=== PATIENT | male | born 1950 | race Caucasian/White ===

== ENCOUNTER 2018-09-19 17:10 | Inpatient (IN) ==
[2018-09-19] MEDS ORDERED: LOPRESSOR IV ONE (17:21)
--- NOTE | 2018-09-19 17:34 | PROVIDER DOCUMENTATION ---
HPI-Cardiac General - General Chief Complaint: Palpitations Stated Complaint: SOB/HEART ISSUE Time Seen by Provider: 09/19/18 17:17 Source: patient, family Allergies/Adverse Reactions: Patient Allergies Allergy/AdvReac Type Severity Reaction Status Date / Time Iodinated Contrast- Oral and Allergy Unknown Verified 09/19/18 17:28 IV Dye ciprofloxacin [From Cipro] AdvReac Unknown Verified 09/19/18 17:28 Home Medications: Home Medication List Medication Instructions Recorded Confirmed Last Taken Type Labetalol HCl 300 mg PO BID 04/21/14 04/21/14 04/21/14 12:00 History Nifedipine [Nifedipine ER] 30 mg PO DAILY 04/21/14 04/21/14 04/21/14 12:00 Hi story Bimatoprost [Latisse] 0.01 drop BOTH EYES QHS 04/22/14 04/22/14 Unknown History - History of Present Illness-Cardiac Nature of Presenting Problem: reports has been on chemo with oxaliplatin and leucovorin 02/12, recently he has been coughing and sob. lower extremity edema , cxr and pro bnp obtained showing pulm edema with pleural effusion, which was given furosemide 20mg. pt was given the augmentin x7 days, which was told to be off medicine. sob with exertion for 7 days. no histoyr of Afib rvr, Review of Systems - Adult - REVIEW OF SYSTEMS - ADULT Constitutional: reports: no symptoms reported Eyes: reports: no symptoms reported Ears, Nose, Mouth & Throat: reports: no symptoms reported Cardiovascular: reports: no symptoms reported Respiratory: reports: no symptoms reported Gastrointestinal: reports: no symptoms reported Genitourinary: reports: no symptoms reported Musculoskeletal: reports: no symptoms reported Integumentary: reports: no symptoms reported Neurological: reports: no symptoms reported Psychiatric: reports: no symptoms reported Endocrine: reports: no symptoms reported Hematologic/Lymphatic: reports: no symptoms reported Allergic/Immunologic: reports: no symptoms reported All Other Systems: Reviewed and Negative Past History - Adult - PAST MEDICAL HISTORY-ADULT Review of Records: reports: Old Records Reviewed, Nursing Assessment Review, Medications Reviewed, Social history reviewed & non-contributory. Major Childhood Illnesses: reports: denies history Cardiovascular: reports: HTN Respiratory: reports: denies history Gastrointestinal: reports: denies history Obstetrical/Gynecological: reports: denies history Genitourinary: reports: denies history Musculoskeletal: reports: denies history Neurological: reports: denies history Endocrine/Immune: reports: denies history Other Conditions: reports: denies history - IMMUNIZATION STATUS Childhood Immunizations: See Nurse Assessment Flu Vaccine: See Nurse Assessment - FAMILY HISTORY Family History: reviewed, not pertinent - SOCIAL HISTORY Smoking: denies Substance Use: none/never Alcohol Use Frequency: never Living Situation: family Physical Exam-General - PHYSICAL EXAM-ADULT Initial Vital Signs Reviewed: Yes - CONSTITUTIONAL General Appearance: appears well, alert, no apparent distress - EYES Eyes: PERRL/EOMI, pink conjunctivae - HEAD, EARS, NOSE, MOUTH & THROAT HENMT: normocephalic/atraumatic, moist mucous membranes, normal ENT inspection - NECK Neck: non-tender, full range of motion, supple - RESPIRATORY Respiratory: chest non-tender, no respiratory distress - CARDIOVASCULAR Cardiovascular: normal peripheral pulses, tachycardia, irregularly irregular, other (pitting edema alexsandra right leg) - GASTROINTESTINAL (ABDOMEN) Abdominal Exam: normal bowel sounds, non tender, soft, other (midline scar) - MUSCULOSKELETAL Back Exam: normal inspection, no CVA tenderness, no vertebral tenderness Extremity: normal range of motion, non-tender Peripheral Pulses: radial (R): 2+, radial (L): 2+, dorsalis-pedis (R): 2+, dorsalis-pedis (L): 2+ - SKIN Integumentary: normal color, normal turgor, warm/dry - NEUROLOGIC Neurologic: grossly normal, no motor/sensory deficits - PSYCHIATRIC Psych/Mental Status: normal mood/affect, normal thought content, normal thought process, oriented x 3 Progress - PLAN OF CARE/RESULTS Progress/Plan/Lab Results: Vital Signs - 8 hr 09/19/18 17:17 09/19/18 17:30 09/19/18 18:00 Temperature 98.0 F Pulse Rate 127 H 118 H 116 H Respiratory Rate 20 22 Blood Pressure 124/93 118/87 O2 Sat by Pulse Oximetry 94 L 92 L 90 L 09/19/18 18:30 09/19/18 18:48 Temperature Pulse Rate 123 H 125 H Respiratory Rate 22 25 H Blood Pressure 127/99 118/81 O2 Sat by Pulse Oximetry 90 L 89 L Laboratory Results - last 24 hr 09/19/18 09/19/18 09/19/18 17:27 17:27 17:27 WBC 10.47 RBC 4.57 L Hgb 14.3 Hct 42.0 MCV 91.9 MCH 31.3 H MCHC 34.0 RDW Std Deviation 19.1 H Plt Count 133 MPV 11.8 H Immature Gran % (Auto) 0.3 Neut % (Auto) 67.8 Lymph % (Auto) 19.8 L Clinch % (Auto) 10.7 H Eos % (Auto) 0.7 Baso % (Auto) 0.7 Immature Gran # (Auto) 0.03 Neut # (Auto) 7.11 H Lymph # (Auto) 2.07 Clinch # (Auto) 1.12 H Eos # (Auto) 0.07 Baso # (Auto) 0.07 PT 15.8 INR 1.17 PTT (Actin FS) 25.3 Sodium 136 Potassium 3.4 L Chloride 101 Carbon Dioxide 25 Anion Gap 10 BUN 11 Creatinine 0.7 Estimated GFR/1.73 m2 > 60 BUN/Creatinine Ratio 16 Glucose 107 H Calculated Osmolality 272 Calcium 8.5 L Total Bilirubin 0.81 AST 35 H ALT 20 Alkaline Phosphatase 110 Total Protein 6.8 Albumin 3.8 Globulin 3.0 Albumin/Globulin Ratio 1.3 Orders Category Date Time Status CBC WITH ELECTRONIC DIFF [HEME] Stat Lab 09/19/18 17:27 Completed CMP [COMPREHENSIVE METABOLIC PANEL] [CHEM] Stat Lab 09/19/18 17:27 Completed PROTIME WITH INR [COAG] Stat Lab 09/19/18 17:27 Completed PTT [COAG] Stat Lab 09/19/18 17:27 Completed Metoprolol [Lopressor] Med 09/19/18 17:21 Discontinued 5 mg IV NOW ONE Result Diagrams: 09/19/18 17:27 09/19/18 17:27 - CONSULTS/PCP/HOSPITALIST Notification #1 *Consult/PCP/Hospitalist*: dr. Durbin Time Discussed: 19:21 (afib rvr, s/p lopressor improving, however still tachy afib rvr. ) Consult Disposition: Admit Departure - Departure Date of Disposition Decision: 09/19/18 Time of Disposition Decision: 19:22 DIAGNOSIS: New onset a-fib Disposition: ADMITTED INPATIENT 09 Certified Medical Emergency: Emergent Condition: Stable Referrals and Follow-Ups: Antolin Wynne MD [Primary Care Provider] - - Critical Care Note This patient required my direct & personal management of CC.: No Attestation - Physician/ RADU Attestation The physician spent face to face time with patient:: Yes Advanced Practice Provider documentation review:: Supervising physician onsite and consulted in the evaluation and care of this patient. The physician did have a face to face encounter with the patient.
[2018-09-19 18:06] LABS: BASO# 0.07 X1000 (0.0-0.2); BASO% 0.7 % (0.0-0.8); EOS# 0.07 X1000 (0.0-0.7); EOS% 0.7 % (0.0-10.0); HEMOGLOBIN 14.3 g/dL (14.0-18.0); IMM GRAN# 0.03 X1000 (0.0-0.04); IMM GRAN% 0.3 % (0.0-0.5); LYMPH# 2.07 X1000 (1.2-3.4); LYMPH% 19.8 % (20.5-51.1); MCH 31.3 PG (27-31); MCV 91.9 FL (81-99); MONO# 1.12 X1000 (0.11-0.59); MONO% 10.7 % (1.7-9.3); MPV 11.8 FL (7.4-10.4); NEUT# 7.11 X1000 (1.4-6.5); NEUT% 67.8 % (42.2-75.2); PLT 133 X1000 (130-400); RBC 4.57 XMIL (4.7-6.1); RDW 19.1 % (11.5-14.5); WBC 10.47 X1000 (4.8-10.8)
[2018-09-19 18:21] LABS: AGAP 10; ALB/GLOB RATIO 1.3; ALBUMIN 3.8 g/dL (3.5-5.0); ALKALINE PHOSPHATASE 110 U/L (32-122); BUN 11 mg/dL (8-22); CALCIUM 8.5 mg/dL (8.8-10.2); CHLORIDE 101 mmol/L (98-107); COSMO 272; CREATININE 0.7 mg/dL (0.7-1.2); ESTIMATED GFR > 60; GLUCOSE 107 mg/dL (70-104); GOT 35 U/L (10-34); GPT 20 U/L (10-44); POTASSIUM 3.4 mmol/L (3.5-5.1); SODIUM 136 mmol/L (136-145); TCO2 25 mmol/L (25-35); TOTAL BILIRUBIN 0.81 mg/dL (0.20-1.00); TOTAL PROTEIN 6.8 g/dL (6.3-8.3)
[2018-09-19 18:35] LABS: INR 1.17; PROTIME 15.8 Seconds (11.0-16.0)
[2018-09-19 18:36] LABS: PTT 25.3 Seconds (22.3-41.8)
[2018-09-19] MEDS ORDERED: SOLU-CORTEF IV ONE (21:29)
[2018-09-19] MEDS ORDERED: BENADRYL IV ONE (21:29)
[2018-09-19] MEDS ORDERED: TYLENOL PO PRN (23:41)
[2018-09-19] MEDS ORDERED: NORCO-7.5 PO PRN (23:41)
[2018-09-19] MEDS ORDERED: ZOFRAN IV PRN (23:41)
[2018-09-20] MEDS: MAXIPIME 1 GM in NS 50 ML IV SCH ×2 (01:12→11:21)
[2018-09-20] MEDS: LASIX IV SCH ×2 (01:12→11:21)
--- NOTE | 2018-09-20 03:05 | HISTORY AND PHYSICAL ---
PRIMARY CARE PHYSICIAN: Dr. Antolin Wynne. DATE AND TIME: 09/19/2018 at 2030. ONCOLOGIST: Dr. Mcrae. CHIEF COMPLAINT: Irregular heart rhythm. HISTORY OF PRESENT ILLNESS: Mr. Staley is a 68-year-old male who has a recent diagnosis of colon cancer in March 2018. He underwent a colon resection and has since been receiving chemotherapy followed by Dr. Mcrae. The patient reports that he has had chronic problems with bilateral lower extremity edema for quite some time, and this had been attributed to a side effect of 1 of his blood pressure medications, which is likely the nicardipine. The patient reports that over the past few weeks he has had worsening bilateral lower extremity edema. He reports this was 3+ pitting edema. He also reports that starting a few weeks ago, he was having occasional productive cough with white sputum. He was reporting shortness of breath with exertion and was having occasional what he described as pain in the base of his lung, his mid lower back. He did report the symptoms to Dr. Mcrae and Dr. Mcrae did increase his Lasix, which had been normally 20 mg daily to just recently over the past day or so to 80 mg daily. He also did give him a prescription for Augmentin, a 10-day supply, which the patient states that he took the last pill of today, on September 19. The patient denies any fever, body aches, or chills. Given his symptoms as well as worsening swelling and continued shortness of breath with exertion, Dr. Mcrae did have him present to the ER earlier today for a chest x-ray, which did show pulmonary edema with trace pleural effusions, dense left perihilar infiltrate that was indeterminate. Dr. Mcrae did have him come back to the hospital for an echocardiogram, and during his echocardiogram study, the signals collection technician did note that his heart rhythm was irregular. He did have elevated heart rate. He was brought to the ER for further evaluation. Initial vital signs upon presentation in the ER were temperature 98 degrees, heart rate 127, respirations 20, blood pressure 124/93 with oxygen saturation that was 94% on room air. EKG did confirm that the patient was in atrial fibrillation with RVR at a rate of 132. The patient was given a one-time dose of 5 mg of IV Lopressor and his heart rate did immediately improve and maintained a heart rate in the 80s, and on the time of my assessment had converted into a sinus rhythm. The patient during all this, denied any feeling of his heart racing, any palpitations, or any chest pain. Though he has been reporting shortness of breath with exertion, he did not report any worsening shortness of breath during this time. The patient states that since taking his extra Lasix dose, which totaled 80 mg earlier in the day, he has had increased urine output at home, and since arriving to the hospital has had a measured 1000 mL of urine output. He denies any headache, dizziness, chest pain, orthopnea, proximal nocturnal dyspnea, abdominal pain, nausea or vomiting. The patient does report that he has occasional diarrhea, though states this has been intermittently ongoing since he was diagnosed with colon cancer and has had his colon resection. He denies any hematochezia or melena. He denies any dysuria. Other than his swelling in his bilateral lower extremities, he denies any other pain, numbness, or tingling in extremities. Upon my assessment in the ER, the patient was sitting in the ER stretcher resting comfortably. He was not in any acute distress. The patient does not wear oxygen at home and has never required it in the past. He is a former smoker, though was maintaining oxygen saturations of 89% to 90% on room air. With nasal cannula of 2 L, he is maintaining oxygen saturations of 96%. He was in sinus rhythm on the monitor with a rate in the 80s. Blood pressure is within normal limits. The patient does have 3+ pitting edema noted in bilateral lower extremities from approximately just inferior to the knee down bilaterally. He does have some very slight JVD noted with hepatojugular reflex, and does have some fine crackles noted in bilateral bases. Given the patient's colon cancer history as well as bilateral lower extremity edema, symptoms of shortness of breath, and new onset atrial fibrillation, we did perform a CT angiogram pulmonary arteries to rule out possible pulmonary embolism. Though it was negative for acute pulmonary embolism, there was interval development of bilateral pneumonia and pleural effusions noted. The patient will be placed inpatient admission for further treatment and evaluation. REVIEW OF SYSTEMS: A 14-point review of systems was conducted with the patient and all were negative, except for pertinent positives mentioned in above HPI. PAST MEDICAL HISTORY: 1. Hypertension. 2. History of 1 seizure in June 1984 that occurred after a syncopal episode while he was having blood drawn. He has not had a reported seizure since. 3. Glaucoma. 4. Sleep apnea. 5. Colon cancer with reported lymph node involvement status post colon resection, currently receiving chemotherapy, followed by Dr. Mcrae. PAST SURGICAL HISTORY: 1. Appendectomy. 2. Hernia repair. 3. Colon resection in March 2018. SOCIAL HISTORY: The patient is a former smoker, he did quit smoking in 1980 and had smoked prior to this since age 15. He did smoke up to at the highest point 1 pack per day. There is no known alcohol or illicit drug use. 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 He is , his was present at bedside during my examination. FAMILY HISTORY: Positive for his mother passing away at a very young age of 24 secondary to a motor vehicle crash. His father did pass away secondary to lung cancer. He was a reported smoker. There is some family history of heart disease. ALLERGIES: Patient has allergies to ciprofloxacin and iodinated oral and IV contrast dye. HOME MEDICATIONS: 1. Lasix 20 mg p.o. daily. 2. Gabapentin 300 mg p.o. b.i.d. 3. Quimby 7.5 mg, 1 tablet p.o. q.6 hours as needed for pain. 4. Labetalol 3 mg p.o. b.i.d. 5. Nifedipine extended release 30 mg p.o. daily. Lumigan eye drops, the strength is unknown at this time, but the patient reports that he does 1 drop in both eyes twice daily. We are going to confirm the strength. Also, we are going to confirm the dose strength of his labetalol, there is 300 mg p.o. b.i.d. that has been reconciled in the patient's home medication list, though the patient did verbally tell me that he took 100 mg p.o. twice daily. We will confirm this and make corrections if needed. DIAGNOSTIC DATA/LABORATORY RESULTS: White blood cell count is 10,470, hemoglobin 14.3, hematocrit 42, platelet count is 133,000. PT 15.8, INR 1.17, PTT is 25.3. Sodium 136, potassium 3.4, chloride 101, serum bicarb is 25, BUN 11, creatinine 0.7. Glucose 107, calcium 8.5. Liver function tests within normal limits, except for AST is slightly elevated at 35, CK 81, troponin less than 0.01. ProBNP is 904. TSH is 1.81. EKG showed atrial fibrillation with rapid ventricular response at a rate of 132, with a QTc of 548. Repeat EKG since that time did show a sinus rhythm with premature atrial complexes at a rate of 82, with a QTc of 474. Chest x-ray performed earlier in the day was a 2 view which showed pulmonary edema with trace pleural effusions. There was a dense left perihilar infiltrate that was indeterminate. CT angiogram pulmonary artery showed no acute PE or aortic dissection, though there was interval development of bilateral pneumonia and pleural effusions. There were stable right middle lobe nodule. Please see full CT report for detailed findings. PHYSICAL EXAMINATION: VITAL SIGNS: Temperature 98 degrees, heart rate 81, respirations 20, blood pressure 129/78 with a MAP of 88, oxygen saturation was 94% to 96% nasal cannula 2 L. GENERAL: Mr. Staley is a very pleasant, 68-year-old male who is resting in the ER stretcher. He was in no acute distress. He was awake, alert, and able to answer questions appropriately. HEENT: Head is atraumatic, normocephalic. Pupils are equal, round, reactive to light, were 3 mm bilaterally and brisk. Oral mucosa is moist. Oropharynx clear. NECK: Supple. Trachea midline. The patient did have some slight JVD noted with hepatojugular reflex. CARDIOVASCULAR: Patient has S1, S2 present. No murmurs, gallops, rubs appreciated. A regular rate and rhythm. PULMONARY: Patient has symmetrical chest expansion bilaterally. Lung sounds are clear to auscultation in bilateral upper pollock, though in bilateral lower pollock he did have fine crackles noted. ABDOMEN: Soft. Does appear to be somewhat slightly distended, but the patient does have a protuberant abdomen noted and he denies any increased abdominal swelling. He was nontender upon palpation. Bowel sounds are present in all 4 quadrants, were normoactive. EXTREMITIES: No cyanosis noted. The patient does have 3+ pitting edema noted in bilateral lower extremities from approximately the knees down, though pulse motor and sensory is intact in all extremities. Radial pulses and pedal pulses are 2+ bilaterally. INTEGUMENTARY: The patient's skin is pink, warm, and dry. NEUROLOGICAL: Patient is alert and oriented x4. He is able to move all extremities. There did not appear to be any focal neurological deficits noted. ASSESSMENT AND PLAN: 1. New onset atrial fibrillation. The patient's heart rate did improve with a single dose administration of Lopressor 5 mg IV. Since that time, he has converted to a sinus rhythm. During this time, the patient denied any palpitations, feeling of his heart racing, or chest pain. His cardiac enzymes have been negative. The patient was noted to have irregular and elevated heart rate while he was getting an echocardiogram performed. At this time, we are unsure if the test was able to be completed. Given this, I have ordered for an echocardiogram to be performed in the morning and we will confirm this and if it was completed this order can be canceled. We will continue with the series of cardiac enzymes. The patient today has already had a total of 80 mg of Lasix orally. He did report increased urine output at home and has had, so far since arriving to the ER, a 1000 mL of urine output noted. Given this, we will order him to have 20 mg of Lasix IV q.12 hours though have this timed to start in the morning. We will do daily weights. We will do strict intake and output. We have placed a Cardiology consult with Dr. Chris, and will await their evaluation and further recommendations for management. The patient has been placed on CIC with continuous cardiac telemetry. We will do frequent vital signs. He will be on a heart healthy diet. We will continue to monitor closely. 2. Possible acute congestive heart failure. This could be multifactorial. The patient had been reporting increased bilateral lower extremity edema as well as shortness of breath, though he has been receiving steroid infusions with his chemotherapy treatment, this could have worsened this. Also, this could be related to his atrial fibrillation. We will continue with treatment as mentioned above with gentle diuresis with IV Lasix. We will monitor his response to this and await results of diagnostic studies and cardiology's evaluation. 3. Bilateral pneumonia. We have obtained blood cultures, sputum culture. We will continue with aggressive pulmonary toilet, p.r.n. DuoNeb treatments, and placed on antibiotic coverage of cefepime IV. We will continue to follow. 4. Colon cancer. We have placed a consult with Dr. Mcrae. We will await their evaluation and further recommendations for management. 5. Hypertension. We will continue his regularly prescribed antihypertensive medications. 6. Deep vein thrombosis prophylaxis. Will be provided with Lovenox 40 mg subcutaneously q.24 hours. He will be placed on CIC with telemetry, as mentioned above. We will repeat a CBC, BMP, magnesium in the morning. We will await results of cardiac enzymes series. We have replaced his potassium, which was mildly low at 3.4. Further orders and recommendations pending hospital course, diagnostic studies, and physician evaluation. Dictated by KATT Pino for Jaylen Durbin MD I have performed a face to face diagnostic evaluation. Labs/ Xrays- reviewed. Exam- chest- bibasilar rales, CV- irregular A/P- New onset Afib, Chest pain- Admit , cardiac work up, cardiology consult. Dr. Durbin cc: Jaylen Durbin MD [facility]
[2018-09-20] MEDS ORDERED: LOVENOX SUBQ SCH (06:00)
[2018-09-20 06:20] LABS: BASO# 0.03 X1000 (0.0-0.2); BASO% 0.3 % (0.0-0.8); HEMATOCRIT 41.1 % (42.0-52.0); HEMOGLOBIN 13.9 g/dL (14.0-18.0); IMM GRAN# 0.03 X1000 (0.0-0.04); IMM GRAN% 0.3 % (0.0-0.5); LYMPH# 1.01 X1000 (1.2-3.4); LYMPH% 11.6 % (20.5-51.1); MCH 31.3 PG (27-31); MCHC 33.8 g/dL (33-37); MCV 92.6 FL (81-99); MONO# 0.47 X1000 (0.11-0.59); MONO% 5.4 % (1.7-9.3); MPV 11.2 FL (7.4-10.4); NEUT# 7.15 X1000 (1.4-6.5); NEUT% 82.4 % (42.2-75.2); PLT 138 X1000 (130-400); RBC 4.44 XMIL (4.7-6.1); RDW 19.1 % (11.5-14.5); WBC 8.69 X1000 (4.8-10.8)
[2018-09-20 06:44] LABS: AGAP 12; BUN 11 mg/dL (8-22); CALCIUM 8.7 mg/dL (8.8-10.2); CHLORIDE 103 mmol/L (98-107); COSMO 283; CREATININE 0.7 mg/dL (0.7-1.2); ESTIMATED GFR > 60; GLUCOSE 144 mg/dL (70-104); MAGNESIUM 2.1 mg/dL (1.5-2.7); POTASSIUM 3.4 mmol/L (3.5-5.1); SODIUM 141 mmol/L (136-145); TCO2 26 mmol/L (25-35)
--- NOTE | 2018-09-20 08:01 | Diag Imaging Result Doc PS360 ---
CT ANGIOGRM PULMONARY ARTERIES - 09/19/2018 INDICATION: SOB,New onset A-Fib,Pulmonary Edema TECHNIQUE: Axial CT images were obtained after administering intravenous contrast. Coronal MIP images were generated. COMPARISON: 09/19/2018, 08/18/2018 FINDINGS: There is no pulmonary embolism. Heart and great vessels are normal. There is a right chest port in good position. Upper abdominal images are unremarkable. There is a stable partially calcified pulmonary nodule in the right middle lobe. There are bilateral central infiltrates with intralobular septal thickening suggesting pulmonary edema. There are small bilateral pleural effusions. There is focal consolidation of the left upper lobe. There is trace bibasilar atelectasis. Bones are intact. IMPRESSION: Negative for pulmonary embolism. Left upper lobe infiltrate/pneumonia. Bilateral pulmonary edema and small pleural effusions. This exam was performed using automated exposure control, adjustment of mA or kV according to patient size, and/or use of iterative reconstruction technique Electronically signed by Rishi Aly 09/20/2018 7:59 AM
[2018-09-20] MEDS ORDERED: TRANDATE PO SCH (09:00)
[2018-09-20] MEDS ORDERED: ADALAT CC PO SCH (09:00)
[2018-09-20] MEDS: NEURONTIN PO SCH ×2 (09:05→20:19)
[2018-09-20] MEDS: TRANDATE PO SCH ×2 (09:05→20:18)
[2018-09-20] MEDS ORDERED: KLOR-CON PO ONE ×2 (10:55)
[2018-09-20] MEDS: LOVENOX SUBQ SCH (17:17)
--- NOTE | 2018-09-20 17:34 | PROGRESS NOTE ---
DATE: 09/20/2018 SUBJECTIVE: The patient is sitting up at the edge of the bed. He states that he feels a lot better today. OBJECTIVE: Vital Signs: Temperature 98.4 degrees, blood pressure 116/73, heart rate 82, respirations 17, O2 saturation 94% on room air. General: This is an elderly male lying in bed in no acute distress. Heart: S1, S2 normal. Regular rate and rhythm. Lungs: Equal air entry bilaterally. No crackles. No rales. Abdomen: Positive bowel sounds. Soft, nontender, nondistended. Extremities: 2+ edema. Neuro: The patient is alert and oriented x3. LABS: White blood cell count 8.6, hemoglobin 13.9, hematocrit 41, platelets 138,000, sodium 141, potassium 3.4, chloride 103, CO2 26, BUN 11, creatinine 0.7, glucose 144, magnesium 2.1. Troponin less than 0.01. ASSESSMENT AND PLAN: 1. Acute congestive heart failure exacerbation. Continue with diuretic therapy. An echocardiogram has been done. Will await the results. Cardiology has also been consulted. 2. Left upper lobe pneumonia. Blood and sputum cultures have been ordered. Continue with broad- spectrum antibiotic therapy. Will also add bronchodilator therapy. 3. Hypokalemia. Will replace the patient's potassium. 4. Colon cancer status post resection on chemotherapy. Will consult Dr. Mcrae. 5. Hypertension. Continue with the current antihypertensive regimen. 6. Atrial fibrillation. Management as per the novelty candy maker. cc: Rebeca Saini MD
--- NOTE | 2018-09-20 18:25 | CARDIOLOGY CONSULTATION ---
DATE: 09/19/2018 INDICATION: New onset atrial fibrillation. HISTORY OF PRESENT ILLNESS: Mr. Staley is a 68-year-old gentleman with a history of hypertension and colon cancer currently undergoing chemotherapy per Dr. Mcrae. Apparently he has been having complaints of mid to lower back pain pretty consistently in the afternoon for the last couple of weeks. It does not appear to be exertional. At one point he was put on antibiotics. He began having some more shortness of breath and lower extremity edema about 1 week ago. He did not complain of any palpitations. He was referred for a chest x-ray, suggesting pulmonary edema. He was subsequently referred for an echo and was found to be in atrial fibrillation and then referred to the ER. The patient has not had any palpitations or any chest pain complaints. He is currently in sinus rhythm. He has no history of diabetes. No history of stroke. He denies any history of bleeding issues. PAST MEDICAL HISTORY: 1. Hypertension. 2. Possible seizure in June 1984. 3. Colon cancer with chemotherapy undergoing as well as previous resection. His last dose of chemo was around 2 weeks ago. This is followed by Dr. Mcrae. SOCIAL HISTORY: Previous smoker. Quit smoking in . He is his is in the room. He works as an sec accountant. No alcohol or illicit drugs. FAMILY HISTORY: Mother secondary to a motor vehicle accident. Father had lung cancer. REVIEW OF SYSTEMS: A 10 system review of systems is negative except for those mentioned in HPI. PHYSICAL EXAMINATION: Vital Signs: He is afebrile. Heart rate 82. His blood pressure is 113/68. General: He is in no acute distress. HEENT: Oropharynx is moist. Normal dentition. Eye examination: [place] conjunctivae. White sclerae. Neck: Shows no obvious thyromegaly or thyroid tenderness. Cardiovascular: He sounds to be in a regular rate and rhythm. He has no murmurs. He has no S3. He has 1+ bilateral lower extremity edema. Chest: Clear bilaterally. He has no increased work of breathing. Abdomen: Soft, nontender. No obvious organomegaly. Skin: Warm and dry throughout without any rashes. Neurological: He is moving all extremities well. He has no lateralizing deficits. Psychiatric: He is alert, oriented, pleasant. Normal mood and affect. PERTINENT DATA: His chest x-ray shows no evidence of pulmonary embolism. He does have a left upper lobe infiltrate suggesting possible pneumonia. He has bilateral pulmonary edema and small pleural effusions. His EKG yesterday at 5:13 p.m. shows atrial fibrillation, rate of 132 beats per minute. Subsequent EKG this morning at 1:05 a.m. shows sinus rhythm. His lab data shows a white count of 8.7, hematocrit of 41. His platelet count is 138. His INR yesterday was 1.1. Sodium 141, potassium 3.4, BUN 11, creatinine 0.7. His magnesium level is 2.1. His proBNP was 904. He had negative cardiac enzymes. ASSESSMENT: Mr. Staley is a 68-year-old gentleman with history of colon cancer with new-onset atrial fibrillation. He has a CHADS-VASc score of 2 for age and hypertension. PLAN: We will continue him on current medications in the form of labetalol. I will stop his nifedipine, as the patient reports issues with lower extremity edema on this medication. I will initiate him on a thiazide diuretic. We will likely consider antiarrhythmic therapy in this patient after reviewing his echocardiogram. I have discussed with him long-term oral anticoagulation, which he agrees with. He seems like an appropriate candidate. Initially we will place him on 1 mg/kg of Lovenox and potentially switch him to oral Eliquis at the time of discharge. His correct dose would be 5 mg b.i.d. cc: Demario Chris MD
[2018-09-21] MEDS: LASIX IV SCH ×3 (00:09→21:50)
[2018-09-21] MEDS: MAXIPIME 1 GM in NS 50 ML IV SCH ×3 (00:09→21:50)
[2018-09-21] MEDS: LOVENOX SUBQ SCH ×2 (01:59→05:09)
[2018-09-21 06:01] LABS: HEMATOCRIT 39.1 % (42.0-52.0); HEMOGLOBIN 13.1 g/dL (14.0-18.0); MCH 30.8 PG (27-31); MCHC 33.5 g/dL (33-37); MCV 91.8 FL (81-99); MPV 10.8 FL (7.4-10.4); RBC 4.26 XMIL (4.7-6.1); RDW 18.7 % (11.5-14.5); WBC 7.57 X1000 (4.8-10.8)
[2018-09-21 06:33] LABS: AGAP 9; BUN 11 mg/dL (8-22); CALCIUM 8.2 mg/dL (8.8-10.2); CHLORIDE 102 mmol/L (98-107); COSMO 279; CREATININE 0.7 mg/dL (0.7-1.2); ESTIMATED GFR > 60; GLUCOSE 144 mg/dL (70-104); POTASSIUM 3.5 mmol/L (3.5-5.1); SODIUM 139 mmol/L (136-145); TCO2 28 mmol/L (25-35)
--- NOTE | 2018-09-21 08:34 | Diag Imaging Result Doc PS360 ---
CHEST-PORTABLE - 09/21/2018 INDICATION: pneumonia COMPARISON: 09/19/2018 FINDINGS: Stable right chest port. There has been resolution of the pulmonary edema and small pleural effusions. Stable dense left perihilar infiltrate compatible with pneumonia. IMPRESSION: Resolution of the pulmonary edema and pleural effusions. Stable left perihilar pneumonia. Electronically signed by Rishi Aly 09/21/2018 8:31 AM
[2018-09-21] MEDS: NEURONTIN PO SCH ×2 (09:40→21:49)
[2018-09-21] MEDS: TRANDATE PO SCH ×2 (09:41→21:50)
[2018-09-21] MEDS: HYDROCHLOROTHIAZIDE PO SCH (09:41)
--- NOTE | 2018-09-21 12:39 | CARDIOLOGY PROGRESS NOTE ---
DATE: 09/21/2018 SUBJECTIVE: Patient reports he feels better. His edema seems to be improved per him. He has no active complaints. OBJECTIVE: Vitals: The patient is afebrile. His heart rate is 82, his blood pressure is 116/69. He is currently in sinus. General: He is in no acute distress. Cardiovascular: He is in a regular rate and rhythm with no murmurs, no S3. Chest: Sounds clear bilaterally. No increased work of breathing. Abdomen: Soft, nontender. Extremities: He has 2+ bilateral lower extremity edema. INPUT AND OUTPUT: Difficult to track secondary to unmeasured voids. PERTINENT DATA: White count 7.6, hematocrit 39, platelet count is 146,000. His sodium is 139, potassium 3.5, BUN 11, creatinine 0.7. TSH was normal. Cardiac enzymes normal. His recent echo showed a preserved ejection fraction, although it is a difficult study secondary to his rate during the evaluation. ASSESSMENT: Mr. Staley is a 68-year-old gentleman who presented in what appears to be diastolic failure, as well as atrial fibrillation with rapid ventricular response. Currently in normal sinus. PLAN: I have added in flecainide at 50 b.i.d. We will recheck a BMP in the morning. I will discontinue the Lovenox. He continues on labetalol presently. If he is stable in the morning he likely be discharged. We will stop the Lovenox and place him on Eliquis at 5 mg b.i.d. cc: Demario Chris MD [facility]
[2018-09-21 13:46] LABS: HEMOGLOBIN A1C 4.7 % (4.8-6.0)
--- NOTE | 2018-09-21 14:10 | PROGRESS NOTE ---
DATE: 09/21/2018 SUBJECTIVE: The patient is sitting up at the edge of the bed. He states that he feels a lot better today. He denies having any shortness of breath. OBJECTIVE: Vital signs: Temperature is 97.9, blood pressure 119/73, heart rate 83, respirations 17, O2 saturation is 95% on room air. General: This is an elderly male sitting at the edge of the bed, in no acute distress. Heart: S1, S2 normal. Lungs: Equal air entry bilaterally. No crackles. No rales. Abdomen: Positive bowel sounds. Soft, nontender and nondistended. Extremities: There is 2+ edema bilaterally. Neurologic: The patient is alert and oriented x4. DIAGNOSTIC DATA: Labs reviewed. ASSESSMENT AND PLAN: 1. Acute diastolic congestive heart failure exacerbation. Management as per the maintenance person. 2. Paroxysmal atrial fibrillation. Continue with the medications as prescribed by the maintenance person. 3. Left upper lobe pneumonia. Continue with antibiotic therapy. 4. Colon cancer, status post resection, on chemotherapy. Management as per Dr. Mcrae. 5. Hypertension. Controlled. cc: Rebeca Saini MD
[2018-09-21] MEDS: TAMBOCOR PO SCH (21:49)
[2018-09-21] MEDS: ELIQUIS PO SCH (21:50)
[2018-09-22 05:27] LABS: HEMATOCRIT 41.2 % (42.0-52.0); HEMOGLOBIN 13.9 g/dL (14.0-18.0); MCH 31.2 PG (27-31); MCHC 33.7 g/dL (33-37); MCV 92.4 FL (81-99); RBC 4.46 XMIL (4.7-6.1); RDW 18.7 % (11.5-14.5); WBC 6.45 X1000 (4.8-10.8)
[2018-09-22 06:05] LABS: AGAP 12; BUN 7 mg/dL (8-22); CALCIUM 8.6 mg/dL (8.8-10.2); CHLORIDE 100 mmol/L (98-107); COSMO 275; CREATININE 0.6 mg/dL (0.7-1.2); ESTIMATED GFR > 60; GLUCOSE 83 mg/dL (70-104); POTASSIUM 3.2 mmol/L (3.5-5.1); SODIUM 139 mmol/L (136-145); TCO2 27 mmol/L (25-35)
[2018-09-22] MEDS ORDERED: KLOR-CON PO ONE (06:20)
--- NOTE | 2018-09-22 07:35 | EKG Report ---
Test Performed on : 09/20/2018 01:05:20 AM Test Reason : A-Fib Blood Pressure : / mmHG Vent. Rate : 082 BPM Atrial Rate : 082 BPM P-R Int : 150 ms QRS Dur : 080 ms QT Int : 406 ms P-R-T Axes : 057 067 038 degrees QTc Int : 474 ms Sinus rhythm. with premature atrial complexes. Possible Left atrial enlargement Borderline ECG When compared with ECG of 19-SEP-2018 17:13, (Unconfirmed) Sinus rhythm. has replaced Atrial fibrillation. Vent. rate has decreased BY 50 BPM Nonspecific T wave abnormality has replaced inverted T waves in Inferior leads Confirmed by Lottie MENA, Bishop ([id number]) on 09/22/2018 8:58:21 AM
[2018-09-22] MEDS: MAXIPIME 1 GM in NS 50 ML IV SCH (08:33)
[2018-09-22] MEDS: ELIQUIS PO SCH (08:33)
[2018-09-22] MEDS: HYDROCHLOROTHIAZIDE PO SCH (08:34)
[2018-09-22] MEDS: NEURONTIN PO SCH (08:34)
[2018-09-22] MEDS: TAMBOCOR PO SCH (08:34)
[2018-09-22] MEDS: TRANDATE PO SCH (08:34)
[2018-09-22] MEDS: LASIX IV SCH (08:34)
--- NOTE | 2018-09-22 09:22 | EKG Report ---
Test Performed on : 09/19/2018 5:13:14 PM Test Reason : AFIB Blood Pressure : / mmHG Vent. Rate : 132 BPM Atrial Rate : 127 BPM P-R Int : 000 ms QRS Dur : 074 ms QT Int : 370 ms P-R-T Axes : 000 071 024 degrees QTc Int : 548 ms Atrial fibrillation. with rapid ventricular response. with premature ventricular or aberrantly conduc ori complexes. Abnormal ECG When compared with ECG of 22-APR-2014 04:24, Atrial fibrillation. has replaced Sinus rhythm. Vent. rate has increased BY 64 BPM Inverted T waves have replaced nonspecific T wave abnormality in Inferior leads Unconfirmed Result
--- NOTE | 2018-09-22 10:08 | Diag Imaging Result Doc PS360 ---
EXAM: CHEST-2 VIEWS HISTORY: pneumonia TECHNIQUE: Chest two views COMPARISON: 09/21/2018 FINDINGS: The lungs are well expanded. The heart is not enlarged. The vessels are not distended. No change in the right portacatheter. No pneumothorax. There are left lung infiltrates which are slightly less dense than on the prior study. Small pleural effusions. IMPRESSION: Interval improvement in the left lung pneumonia. Electronically signed by Juan C Marlow 09/22/2018 10:06 AM
[2018-09-22 12:02] VITALS: BP 136/68
--- NOTE | 2018-09-22 13:12 | HEMO/ONC CONSULTATION ---
DATE: 09/22/2018 CHIEF COMPLAINT: We have been consulted to manage the patient's colon cancer. HISTORY OF PRESENT ILLNESS: Mr. Staley is a pleasant 68-year-old male who was seen in our clinic on Saturday where he had come in complaining of increased shortness of breath with exertion, swelling to lower extremities. The patient at that time was told to increase his Lasix and sent to the hospital for chest x-ray. Chest x-ray showed the patient's pulmonary edema, possible infiltrate, and small pleural effusions. The patient was then sent for an echocardiogram. While the patient was in the hospital for his echocardiogram, the atm technician noted that he was in irregular rhythm and he was sent to the emergency department for further evaluation. While in the emergency department, the patient was found to be in atrial fibrillation with RVR and was admitted at that time for further evaluation and management. Mr. Staley is well known to our clinic where he follows up for his stage III colon adenocarcinoma. The patient was noted to have an ascending colon mass where pathology was moderate to poorly differentiated adenocarcinoma. CT scans were without any evidence metastatic disease. He underwent resection on 03/18/2018. Pathology revealed invasive moderately differentiated carcinoma. The patient did have lymphovascular and peripheral invasion. Margins were negative, MSI was negative. The patient was started on 5-FU on 05/07/2018 and transitioned to FOLFOX on 05/21/2018. The patient last received his treatment of FOLFOX on 09/08/2018. PAST MEDICAL HISTORY: 1. Hypertension. 2. Seizure in 1984. No seizures since then. 3. Glaucoma. 4. Sleep apnea. 5. Colon cancer. PAST SURGICAL HISTORY: 1. Appendectomy. 2. Hernia repair. 3. Colon resection in March 2018. SOCIAL HISTORY: Former smoker. Quit smoking in 1980. Denies any alcohol or illicit drug use. FAMILY HISTORY: Lung cancer, otherwise noncontributory. ALLERGIES: 1. Cipro. 2. Oral and IV contrast dye. HOME MEDICATIONS: 1. Lasix. 2. Gabapentin. 3. [place] 7.5. 4. Labetalol. 5. Nifedipine. 6. Lum[place] eye drops. REVIEW OF SYSTEMS: Negative except as mentioned in HPI. PHYSICAL EXAM: Vital Signs: Temperature 97.8 degrees, heart rate 81, respiratory rate 18, blood pressure 116/6, saturation 96% on room air. General: The patient is awake, lying in bed, no acute distress noted. HEENT: Anicteric. Pupils PERRLA. Mucous membranes moist. Neck: Supple. Trachea midline. No JVD. Lymph node survey: No lymphadenopathy. Cardiovascular: S1, S2. Regular rate and rhythm. Chest: Bilateral breath sounds. Clear to auscultation. Abdomen: Soft, nontender. Bowel sounds present in all 4 quadrants. Skin: Warm, dry, and intact. Neurologic: Alert and oriented x3. No focal deficits noted. LABORATORY DATA: White cell count 6.45, hemoglobin 13.9, hematocrit 41.2, platelets are 174. ASSESSMENT AND PLAN: 1. Colon adenocarcinoma: The patient's dose of chemotherapy was on 09/08/2018. At this time, continue to monitor. Waiting for the patient to improve. Once he gets better, we will consider restarting treatment as an outpatient at that time. 2. Congestive heart failure: Continue recommendations per Cardiology. 3. Atrial fibrillation. Continue medications per Cardiology. 4. Pneumonia: Continue antibiotics as ordered. 5. Hypertension, controlled. Dictated by KATT Michael for Avery Mcrae MD Patient seen and examined. As above. Patient admitted with shortness of breath, edema, atrial fibrillation as well as a recent history of pneumonia. His atrial fibrillation is well controlled at this time. He is on Eliquis for anticoagulation. From his colon cancer, he is towards the end of his therapy. Avery Mcrae M.D. cc: KATT Michael MD [facility]
--- NOTE | 2018-09-22 13:50 | CARDIOLOGY PROGRESS NOTE ---
DATE: 09/22/2018 SUBJECTIVE: Mr. Staley reports he is doing well. He has no complaints today. No chest pain. PHYSICAL EXAMINATION: Vital Signs: The patient is afebrile. Heart rate 72, blood pressure 136/68. General: No acute distress. Cardiovascular: He sounds to be in a regular rate and rhythm. He has no murmurs, no S3. He has no lower extremity edema. Chest: Clear bilaterally. He has no increased work of breathing. Abdomen: Soft, nontender. PERTINENT DATA: Sodium 139, potassium 3.2, BUN 7, creatinine 0.6. His proBNP is 134. ASSESSMENT: Mr. Staley is a 68-year-old gentleman who presented with atrial fibrillation. PLAN: At this point, he is on flecainide 50 b.i.d. as well as Eliquis. He is maintaining sinus rhythm. He continues on labetalol. At this point from a cardiovascular standpoint, he can be discharged home to follow up with us within the next month. Please contact us if we can be of further assistance with this patient. cc: Demario Chris MD
--- NOTE | 2018-09-22 19:24 | Extremity Venous Study ---
PROCEDURE NAME: Venous U/S Bilateral Legs - 09/20/2018 BILATERAL LOWER EXTREMITY VENOUS ULTRASOUND: BUILDING CONSTRUCTION ESTIMATOR: Verena. REQUESTING PHYSICIAN: Dr. Durbin. INDICATION: Edema and shortness of breath. FINDINGS: Deep superficial veins and bilateral lower extremities visualized along their course. All veins appeared compressible, forward flow and no evidence of intraluminal thrombus. SUMMARY: No deep or superficial venous thrombosis seen in the bilateral lower extremities. cc: Marcie Tinsley MD
--- NOTE | 2018-10-02 18:11 | DISCHARGE SUMMARY ---
ADMISSION DATE: 09/19/2018 DISCHARGE DATE: 09/22/2018 DISCHARGE DIAGNOSES: 1. Acute diastolic congestive heart failure exacerbation. 2. Left upper lobe pneumonia. 3. Paroxysmal atrial fibrillation. 4. Colon cancer status post resection on chemotherapy. 5. Hypertension. CONSULTATIONS: 1. Cardiology consultation with Dr. Chris. 2. Oncology consultation with Dr. Mcrae. IMAGIN. Pulmonary arteriogram performed on September 19, 2018 that was noted to be negative for pulmonary embolism. Left upper lobe pneumonia. Bilateral pulmonary edema. 2. Bilateral venous Doppler performed on September 20, 2018 which revealed no evidence of DVT. HOSPITAL COURSE: Mr. Staley is a 68-year-old male with a history of colon cancer, on chemotherapy, who was admitted with atrial fibrillation. On admission, a pulmonary arteriogram was done that revealed bilateral pulmonary edema as well as a left upper lobe pneumonia. The patient was admitted to the Hospitalist Service and Cardiology as well as Oncology were consulted. Blood cultures were obtained and the patient was started on broad-spectrum antibiotics. The patient was also started on a Cardizem drip, as well as diuretic therapy for the heart failure. The patient's peripheral edema improved with diuretic therapy and the patient's cardiac medications were adjusted to provide better rate control. The patient was also started on Xarelto as an anticoagulant. The patient's pneumonia also improved with IV antibiotic therapy. The patient did not require supplemental oxygen. The patient continued to improve clinically and was ultimately cleared for discharge. DISCHARGE MEDICATIONS: 1. Eliquis 5 mg oral twice a day. 2. Flecainide 50 mg p.o. twice a day. 3. Hydrochlorothiazide 25 mg p.o. daily. 4. Klor-Con 20 mEq oral daily. 5. Doxycycline 100 mg oral every 12 hours x7 days. 6. Lasix 20 mg p.o. twice a day. 7. Labetalol 300 mg p.o. twice a day. 8. Gabapentin 300 mg p.o. twice a day. 9. [place] 7.5/325 one tablet oral every 6 hours p.r.n. for pain. 10. Multivitamin 1 tablet oral daily. 11. Vitamin B complex 1 tablet oral daily. 12. [place] 1 drop to the eye at bedtime. 13. Vitamin C 1000 mg oral twice a day. 14. Zinc 220 mg p.o. twice a day. DISCHARGE DIET: Low-sodium diet. Low-cholesterol diet. ACTIVITY: As tolerated. FOLLOW-UP INSTRUCTIONS: The patient has been advised to follow up with Dr. Demario Chris as scheduled by his clinic. The patient will also follow up with Dr. Mcrae as scheduled by his clinic. The patient will need to follow up with his primary care physician in 2 weeks. cc: Rebeca Saini MD MTDD
== END 2018-09-22 14:45 | disposition home or self-care (01) | DRG 291 ==
LOC: ED 17:10 → SUATTDRO 21:33 → 3S 21:33
PROVIDERS: ATTEND Internal Medicine
CPT/HCPCS: 71010; 71020; 71045; 71046; 71275; 80048; 80053; 82550; 82784; 83036; 83735; 83880; 84443; 84484; 85025; 85027; 85610; 85730; 87040; 87070; 87205; 93005; 93010; 93306; 93970; 94761; 94799; 96374; 96375; 99285; A9270; J0692; J1200; J1650; J1720; J1940; Q9967